=== PATIENT | male | born 1980 | race Caucasian/White ===

== ENCOUNTER 2017-11-21 05:41 | Emergency (ER) | payer OTHER ==
[~2017-11-21] VITALS: Ht 190.5 cm; Wt 105.0 kg
[2017-11-21 05:42] VITALS: BP 146/84; PULSE 71; RESP 16; TEMP 98.2; O2SAT 100
[2017-11-21] MEDS ORDERED: IBUPROFEN 800 MG TAB PO ONE (06:15)
--- NOTE | 2017-11-21 06:34 | RADRPT ---
EXAM DATE/TIME: 11/21/2017 06:13 [place] COMPARISON: No previous studies available for comparison. INDICATIONS : Left knee pain and swelling with no known trauma. History of multiple parachute jumps. MEDICAL HISTORY : None. SURGICAL HISTORY : None. ENCOUNTER: Initial ACUITY: 1 day PAIN SCORE: 8/10 LOCATION: Left knee FINDINGS: Four view examination of the left knee demonstrates no evidence of fracture or dislocation. Bony min eralization is normal. The articular surfaces are intact. The suprapatellar soft tissues have a nor mal configuration. CONCLUSION: Unremarkable examination of the left knee. Joe Byrd MD on November 21, 2017 at 6:31 Board Certified Radiologist. This report was verified electronically.
[2017-11-21] MEDS ORDERED: MOBI15TA PO (06:39)
--- NOTE | 2017-11-21 06:40 | PD ---
HPI Chief Complaint: Injury Time Seen by Provider: 06:01 Travel History International Travel<30 days: No Contact w/Intl Traveler<30days: No Traveled to known affect area: No History of Present Illness HPI 37-year-old male with no significant medical history presents to emergency department for evaluation of left knee pain since yesterday. Patient was working yesterday. He was doing lunges. Following a workout he had left knee pain but over the nighttime up until morning, he states the pain is significantly worse. It is exacerbated with bending and walking. Rates it a 6 out of 10. Denies any alterations in sensation or limitations in range of motion. He has no other symptoms to report. PFSH Past Medical History Medical History: Denies Significant Hx Diminished Hearing: No Past Surgical History Surgical History: No Previous Surgery Social History Alcohol Use: Yes (OCC) Tobacco Use: Yes (1PPD) Substance Use: No Allergies-Medications (Allergen,Severity, Reaction): Coded Allergies: No Known Allergies (Unverified , 11/21/17) Reported Meds & Prescriptions Reported Meds & Active Scripts Active Mobic (Meloxicam) 15 Mg Tab 15 Mg PO DAILY PRN Review of Systems Except as stated in HPI: all other systems reviewed are Neg Physical Exam Narrative GENERAL: Well-nourished, well-developed male patient no acute distress. SKIN: Focused skin assessment warm/dry. HEAD: Normocephalic. EYES: No scleral icterus. No injection or drainage. NECK: Supple, trachea midline. No JVD or lymphadenopathy. CARDIOVASCULAR: Regular rate and rhythm without murmurs, gallops, or rubs. RESPIRATORY: Breath sounds equal bilaterally. No accessory muscle use. MUSCULOSKELETAL: No cyanosis, or edema. No laxity with valgus or varus stress of the left knee. Patient can fully flex and extend. Cesar's test is negative. Pulses are palpable. Cap refill is within normal limits. BACK: Nontender without obvious deformity. No CVA tenderness. Data Data Last Documented VS Vital Signs Date Time Temp Pulse Resp B/P (MAP) Pulse Ox O2 Delivery O2 Flow Rate FiO2 11/21/17 06:40 11/21/17 05:42 98.2 71 16 100 Room Air Orders Orders Knee, Complete (4vws) (11/21/17 ) Ibuprofen (Motrin) (11/21/17 06:15) Ed Discharge Order (11/21/17 06:37) Nicholas Bandage (11/21/17 06:37) [facility] Medical Decision Making Medical Screen Exam Complete: Yes Emergency Medical Condition: Yes Medical Record Reviewed: Yes Differential Diagnosis Knee sprain versus strain versus fracture versus osteoarthritis versus ligamentous injury Narrative Course 37-year-old male presents to the emergency department for evaluation left knee pain. No preceding injury. X-ray imaging confirms no acute bony abnormality. Patient is encouraged to follow-up with interactive media marketing specialist he agrees to return immediately with any acute worsening symptoms. Diagnosis Primary Impression: Knee strain Qualified Codes: S86.912A - Strain of unspecified muscle(s) and tendon(s) at lower leg level, left leg, initial encounter Referrals: Orthopaedic Surgeon Primary Care Physician Patient Instructions: General Instructions, Knee Exercises (GEN) Additional Instructions: Nicholas wrap for compression Ice and elevate reduce pain and swelling Avoid weight lifting and repetitive use until symptoms resolve Follow-up with interactive media marketing specialist as outpatient MRI may be warranted Return immediately to emergency department with any acute worsening symptoms Med/Other Pt SpecificInfo: Prescription(s) given Scripts Meloxicam (Mobic) 15 Mg Tab 15 MG PO DAILY Y for PAIN SCALE 1 TO 10, #14 TAB 0 Refills Prov: Jordana Calle 11/21/17 Disposition: 01 DISCHARGE HOME Condition: Stable Jordana Calle Nov 21, 2017 06:40
== END 2017-11-21 07:03 | disposition home or self-care (01) ==
LOC: NEPD 05:41
DX: S86.912A Strain of unspecified muscle(s) and tendon(s) at lower leg level, left leg, initial encounter (principal); F17.200 Nicotine dependence, unspecified, uncomplicated; X50.3XXA Overexertion from repetitive movements, initial encounter
CPT/HCPCS: 73564; 99283